=== PATIENT | male | born 1935 | race Two or more races ===

== ENCOUNTER 2021-12-07 21:39 | Emergency (ER) | payer OTHER ==
[~2021-12-07] VITALS: Ht 172.7 cm; Wt 72.6 kg
[2021-12-08] MEDS ORDERED: ZOFRAN4 MG PO (01:56)
== END 2021-12-08 02:09 | disposition home or self-care (01) ==
LOC: ER 21:39
DX: S00.83XA Contusion of other part of head, initial encounter (principal); R55 Syncope and collapse; R42 Dizziness and giddiness; W18.09XA Striking against other object with subsequent fall, initial encounter; Y93.89 Activity, other specified; Y92.018 Other place in single-family (private) house as the place of occurrence of the external cause; Y99.8 Other external cause status

== ENCOUNTER 2023-03-31 13:11 | Emergency (ER) | payer OTHER ==
[~2023-03-31] VITALS: Ht 172.7 cm; Wt 67.1 kg
[~2023-03-31 13:11] MED LIST: ZOFRAN4 MG PO
[2023-03-31] MEDS ORDERED: AMLODIPINE BESYL5 MG PO (13:28)
[2023-03-31] MEDS ORDERED: PRAVASTATIN SOD20 MG PO (13:29)
[2023-03-31] MEDS ORDERED: LISINOPRIL40 MG PO (13:29)
[2023-03-31] MEDS ORDERED: CLOPIDOGREL BIS75 MG PO (13:29)
[2023-03-31] MEDS ORDERED: GLIMEPIRIDE2 M1 PO (13:29)
== END 2023-03-31 15:52 | disposition home or self-care (01) ==
LOC: ER 13:11
DX: S00.83XA Contusion of other part of head, initial encounter (principal); W18.39XA Other fall on same level, initial encounter; Y93.89 Activity, other specified; Y92.018 Other place in single-family (private) house as the place of occurrence of the external cause; E11.9 Type 2 diabetes mellitus without complications; Z79.84 Long term (current) use of oral hypoglycemic drugs; I11.9 Hypertensive heart disease without heart failure; I10 Essential (primary) hypertension; E78.00 Pure hypercholesterolemia, unspecified; Z95.1 Presence of aortocoronary bypass graft